=== PATIENT | female | born 2000 | race Caucasian/White ===

== ENCOUNTER 2021-10-15 17:44 | Emergency (ER) | payer BC ==
[~2021-10-15] VITALS: Ht 165.1 cm; Wt 81.8 kg
[2021-10-15 18:22] VITALS: TEMP 98.2
[2021-10-15 19:03] VITALS: BP 116/82; PULSE 80
== END 2021-10-15 19:09 | disposition home or self-care (01) ==
LOC: COL.ER 17:44
DX: Z98.890 Other specified postprocedural states (principal); Z48.816 Encounter for surgical aftercare following surgery on the genitourinary system

== ENCOUNTER 2022-05-10 10:28 | Emergency (ER) | payer SELFPAY ==
[~2022-05-10] VITALS: Ht 167.6 cm; Wt 90.9 kg
[2022-05-10 10:59] VITALS: TEMP 98.7
[2022-05-10] MEDS ORDERED: CELEXA10 MG PO ×2 (11:06)
[2022-05-10] MEDS ORDERED: PAMELOR 10MG10 MG PO (11:06)
[2022-05-10 11:27] LABS: COLLECTION METHOD CLEAN CATCH
[2022-05-10 11:44] LABS: URINE BACTERIA Rare /hpf (NONE SEEN); URINE RBC 0-2 /hpf (0-2)
[2022-05-10 11:45] LABS: URINE APPEARANCE Clear (CLEAR/HAZY); URINE BLOOD Negative (NEGATIVE); URINE COLOR Yellow (YELLOW); URINE GLUCOSE Negative (NEGATIVE); URINE KETONE Negative (NEGATIVE); URINE NITRATE Negative (NEGATIVE); URINE PROTEIN(semi-quant) Negative (NEGATIVE); URINE UROBILINOGEN 0.2 E.U/dL (0.2-1.0)
[2022-05-10 15:30] VITALS: BP 142/80; PULSE 97
== END 2022-05-10 15:30 | disposition home or self-care (01) ==
LOC: COL.ER 10:28
PROVIDERS: Nurse Practitioner
DX: S39.91XA Unspecified injury of abdomen, initial encounter (principal); Z32.02 Encounter for pregnancy test, result negative; Z28.310 Unvaccinated for COVID-19; W50.1XXA Accidental kick by another person, initial encounter
CPT/HCPCS: Q9967